=== PATIENT | male | born 1935 | race Caucasian/White ===

== ENCOUNTER 2020-12-14 21:11 | Emergency (ER) | payer MEDICAID, MEDICARE, OTHER ==
[2020-12-14] MEDS ORDERED: Sodium Chloride 0.9% 10 ML Syringe FLUSH PRN (21:12)
[2020-12-14] MEDS ORDERED: Ondansetron 4 MG/2 ML SDV IVPUSH ONE (21:13)
[2020-12-14] MEDS ORDERED: diphenhydrAMINE 50 MG/ML SDV IVPUSH ONE (21:26)
--- NOTE | 2020-12-14 21:32 | EDM.PDOC ---
ED HPI GENERAL MEDICAL PROBLEM - General Chief Complaint: General Stated Complaint: MEDICAL [facility]IA [facility] Time Seen by Provider: 12/14/20 21:15 Source of Information: Reports: Patient, EMS. Denies: Old Records History Limitations: Reports: Other (no old records) - History of Present Illness INITIAL COMMENTS - FREE TEXT/NARRATIVE: 85 yo male from [facility] presents via EMS for nausea, vomiting, weakness and vertigo. Sx's began when he attempted to get out of the family car upon arrival home after eating a walleye dinner. He denies feeling ill before that. He has not had fever or diarrhea. He was diaphoretic at the time of onset. He is not aware of any prior episodes of this. No tx en route by EMS. Onset: Today, Sudden Onset Date: 12/14/20 Duration: Minutes:, Waxing/Waning (had nausea and vomiting return when moved to the cart upon arrival with EMS) Location: Reports: Generalized Quality: Reports: Other (no pain) Severity: Severe Improves with: Reports: Other (? time) Worsens with: Reports: Other (unsure, ? head movement) Context: Reports: Other (See HPI) Associated Symptoms: Reports: Diaphoresis, Nausea/Vomiting, Weakness Treatments [employer]: Reports: Other (see below) (none) denies pain Pain Score (Numeric/FACES): 0 - Related Data Allergies Allergy/AdvReac Type Severity Reaction Status Date / Time morphine Allergy Nausea Verified 12/14/20 21:35 ED ROS GENERAL - Review of Systems Review Of Systems: See Below Constitutional: Reports: Weakness, Diaphoresis HEENT: Reports: Vertigo (not currently) Respiratory: Reports: No Symptoms Cardiovascular: Reports: No Symptoms Endocrine: Reports: No Symptoms GI/Abdominal: Reports: Nausea, Vomiting. Denies: Diarrhea, Hematemesis : Reports: No Symptoms Musculoskeletal: Reports: No Symptoms Skin: Reports: Diaphoresis Neurological: Reports: No Symptoms Psychiatric: Reports: No Symptoms ED EXAM, GENERAL - Physical Exam Exam: See Below Exam Limited By: No Limitations General Appearance: Alert, WD/WN, No Apparent Distress Eye Exam: Right Eye: Nystagmus (Subtle nystagmus at this time) Ears: Normal External Exam, Normal Canal, Hearing Grossly Normal, Normal TMs Ear Exam: Bilateral Ear: Auricle Normal, Canal Normal, TM normal Nose: Normal Inspection, No Blood Throat/Mouth: Normal Inspection, Normal Lips, Normal Oropharynx, Normal Voice, No Airway Compromise Head: Atraumatic, Normocephalic Neck: Normal Inspection Respiratory/Chest: No Respiratory Distress, Lungs Clear, Normal Breath Sounds, No Accessory Muscle Use Cardiovascular: Regular Rate, Rhythm, No Edema GI/Abdominal: Soft, Non-Tender, No Distention Extremities: Normal Inspection Neurological: Alert, Oriented, CN II-XII Intact, Normal Cognition, No Mot or/Sensory Deficits Psychiatric: Normal Affect, Normal Mood Skin Exam: Warm, Dry, Intact, Normal Color, No Rash Course - Vital Signs Last Recorded V/S: Last Vital Signs Temp 35.0 C L 12/14/20 21:26 Pulse 88 12/14/20 22:46 Resp 13 12/14/20 22:46 BP 138/76 12/14/20 22:46 Pulse Ox 95 12/14/20 22:46 - Orders/Labs/Meds Orders: Active Orders 24 hr Category Date Time Status GLUCOSE POC LAB TO COLLECT JPM [POC] Stat Lab 12/14/20 22:29 Ordered Sodium Chloride 0.9% [Saline Flush] Med 12/14/20 21:12 Active 10 ml FLUSH ASDIRECTED PRN Saline Lock Insert [OM.PC] Routine Oth 12/14/20 21:12 Ordered Medication Orders Sodium Chloride (Sodium Chloride 0.9% 10 Ml Syringe) 10 ml FLUSH ASDIRECTED PRN PRN Reason: Keep Vein Open Last Admin: 12/14/20 21:54 Dose: 10 ml Documented by: FREDA Labs: Laboratory Tests 12/14/20 Range/Units 22:35 POC Glucose 101 (74-106) mg/dL Meds: Medications Generic Name Dose Route Start Last Admin Trade Name Freq PRN Reason Stop Dose Admin Sodium Chloride 10 ml 12/14/20 21:12 12/14/20 21:54 Sodium Chloride 0.9% 10 Ml Syringe FLUSH 10 ml ASDIRECTED PRN Administration Keep Vein Open Discontinued Medications Generic Name Dose Route Start Last Admin Trade Name Freq PRN Reason Stop Dose Admin Diphenhydramine HCl 50 mg 12/14/20 21:26 12/14/20 22:17 Diphenhydramine 50 Mg/Ml Sdv IVPUSH 12/14/20 21:27 50 mg ONETIME ONE Administration Ondansetron HCl 4 mg 12/14/20 21:13 Ondansetron 4 Mg/2 Ml Sdv IVPUSH 12/14/20 21:14 ONETIME ONE - Re-Assessments/Exams Free Text/Narrative Re-Assessment/Exam: 12/14/20 23:38 Feeling better after IV Benedryl, able to walk with his walker here. Departure - Departure Time of Disposition: 23:39 Disposition: Home, Self-Care 01 Condition: Fair Clinical Impression: BPV (benign positional vertigo) Qualifiers: Laterality: unspecified laterality Qualified Code(s): H81.10 - Benign paroxysmal vertigo, unspecified ear Nausea and vomiting Qualifiers: Vomiting type: unspecified Vomiting Intractability: non-intractable Qualified Code(s): R11.2 - Nausea with vomiting, unspecified - Discharge Information *PRESCRIPTION DRUG MONITORING PROGRAM REVIEWED*: Not Applicable *COPY OF PRESCRIPTION DRUG MONITORING REPORT IN PATIENT AMINAH: Not Applicable Instructions: Nausea and Vomiting, Adult, Benign Positional Vertigo Referrals: PCP,None [Primary Care Provider] - Forms: ED Department Discharge Additional Instructions: Hold insulin tonight. Check blood sugar in the morning before giving any insulin. Use Zofran as directed for nausea control and meclizine for vertigo. Recheck as needed. Sepsis Event Note (ED) - Evaluation Sepsis Screening Result: No Definite Risk - Focused Exam Vital Signs: Vital Signs Temp Pulse Resp BP Pulse Ox 12/14/20 22:46 88 13 138/76 95 12/14/20 22:24 77 13 128/72 95 12/14/20 21:41 79 14 130/75 96 12/14/20 21:26 35.0 C L 91 14 158/93 H 94 L 12/14/20 21:17 35.0 C L 91 14 158/93 H 94 L - My Orders Last 24 Hours: My Active Orders 12/14/20 21:12 Sodium Chloride 0.9% [Saline Flush] 10 ml FLUSH ASDIRECTED PRN Saline Lock Insert [OM.PC] Routine 12/14/20 22:29 GLUCOSE POC LAB TO COLLECT JPM [POC] Stat - Assessment/Plan Last 24 Hours: My Active Orders 12/14/20 21:12 Sodium Chloride 0.9% [Saline Flush] 10 ml FLUSH ASDIRECTED PRN Saline Lock Insert [OM.PC] Routine 12/14/20 22:29 GLUCOSE POC LAB TO COLLECT JPM [POC] Stat
== END 2020-12-15 00:19 | disposition home or self-care (01) ==
LOC: JP.ED 21:11
DX: H81.10 Benign paroxysmal vertigo, unspecified ear (principal); R11.2 Nausea with vomiting, unspecified; Z88.6 Allergy status to analgesic agent
CPT/HCPCS: 82947; 96374; 99285; J1200